=== PATIENT | female | born 1995 | race Two or more races ===

== ENCOUNTER 2024-01-19 18:56 | Emergency (ER) | payer OTHER ==
[~2024-01-19] VITALS: Ht 167.6 cm; Wt 127.5 kg
[2024-01-19 20:26] LABS: BASOPHILS % (AUTO) 0.4 % (0.0-2.0); EOSINOPHILS # (AUTO) 0.1 K/uL (0.0-0.7); EOSINOPHILS % (AUTO) 0.5 % (0.0-6.0); HEMATOCRIT 25 % (33-45); HEMOGLOBIN 8.4 g/dL (11.5-14.8); LYMPHOCYTES # (AUTO) 1.8 K/uL (0.8-4.8); LYMPHOCYTES % (AUTO) 17.2 % (20.0-44.0); MEAN CORPUSCULAR HEMOGLOBIN 28 PG (26.0-33.0); MEAN CORPUSCULAR HGB CONC 33 g/dl (31.0-36.0); MEAN CORPUSCULAR VOLUME 84 fL (82-100); MONOCYTES # (AUTO) 0.5 K/uL (0.1-1.30); MONOCYTES % (AUTO) 4.6 % (2.0-12.0); NEUTROPHILS # (AUTO) 8.2 K/uL (1.8-8.9); NEUTROPHILS % (AUTO) 77.3 % (43.0-81.0); PLATELET COUNT (AUTO) 294 K/uL (150-450); RED BLOOD CELL COUNT(AUTO) 3.02 MIL/uL (4.0-5.2); RED CELL DISTRIBUTION WIDTH 14.5 % (11.5-15.0); WHITE BLOOD COUNT (AUTO) 10.6 K/uL (4.3-11.0)
[2024-01-19 20:43] LABS: INR 0.91 (0.91-1.10); PARTIAL THROMBOPLASTIN TIME 23.4 SEC (24.3-34.3); PROTHROMBIN TIME 9.4 SECS (9.2-11.1)
[2024-01-19 20:44] LABS: BILIRUBIN,DIRECT 0.1 mg/dL (0.0-0.2); BILIRUBIN,TOTAL 0.2 mg/dL (0.2-1.0); CALCIUM, SERUM 8.6 mg/dL (8.5-10.1); CREATININE 0.8 mg/dL (0.6-1.3); TOTAL PROTEIN, SERUM 6.8 g/dL (6.4-8.2)
[2024-01-19 20:50] LABS: PREGNANCY TEST URINE QUAL NEGATIVE (NEGATIVE)
[2024-01-19] MEDS: medroxyPROGESTERone ACET 5 MG TABLET PO SCH (20:50)
[2024-01-19 20:51] LABS: APPEARANCE,URINE CLOUDY (CLEAR); COLOR,URINE RED (YELLOW)
[2024-01-19 20:52] LABS: PH,URINE 6.5 (5.0-8.0); PROTEIN,URINE 1+ mg/dl (NEGATIVE); UGLUCOSE NEGATIVE (NEGATIVE)
[2024-01-19 20:53] LABS: BILIRUBIN,URINE 1+ (NEGATIVE); BLOOD, URINE 3+ Ery/uL (NEGATIVE)
[2024-01-19 20:54] LABS: KETONES,URINE TRACE mg/dL (NEGATIVE); LEUKOCYTE ESTERASE ,URINE 1+ (NEGATIVE); NITRITE, URINE NEGATIVE (NEGATIVE); UROBILINOGEN,URINE 0.2 EU/dL (0.2)
[2024-01-19] MEDS ORDERED: MEDR10TA73 PO (21:01)
[2024-01-19 21:09] VITALS: BP 138/79; TEMP 98; O2SAT 100
[2024-01-19 21:14] LABS: PLATELET ESTIMATE ADEQUATE
[2024-01-19] MEDS ORDERED: IBUPROFEN 600 MG TABLET ONE (21:26)
[2024-01-19] MEDS: IBUPROFEN 600 MG TABLET PO ONE (21:26)
[2024-01-19] MEDS ORDERED: IBUP-1957 PO (21:31)
[2024-01-19 21:38] LABS: ADD URINE CULTURE YES; BACTERIA,URINE 1+ /HPF (None Seen); SQUAMOUS EPITHELIAL CELL,UR Moderate /HPF (None Seen)
[2024-01-19 21:39] LABS: RBC,URINE 51-80 /HPF (0-2); URINE AMORPHOUS PHOSPHATES Few /HPF (None Seen)
[2024-01-20] MEDS ORDERED: MEDR10TA73 PO (10:48)
[2024-01-20] MEDS ORDERED: IBUP-1957 PO (10:48)
== END 2024-01-19 21:32 | disposition home or self-care (01) ==
LOC: ER 19:02
DX: N93.9 Abnormal uterine and vaginal bleeding, unspecified (principal); R10.32 Left lower quadrant pain; D50.0 Iron deficiency anemia secondary to blood loss (chronic)
CPT/HCPCS: 36415; 76856-TC; 80048-TC; 80076-TC; 81001; 84703-TC; 85025-TC; 85730-TC